=== PATIENT | female | born 1980 | race Caucasian/White ===

== ENCOUNTER 2021-02-28 08:03 | Outpatient (REF) | payer OTHER, SELFPAY ==
[2021-02-28 09:19] LABS: MANUAL DIFF FLAG NO
[2021-02-28 09:32] LABS: Basophils Percent Auto 0.4 % (0-2); Eosinophils Absolute Auto 0.3 X10*3/uL (0.0-0.4); Eosinophils Percent Auto 3.5 % (0-4); Hematocrit 42.4 % (37-47); Hemoglobin 14.1 g/dl (12.0-16.0); Imm Gran Abs Auto 0.05 X10*3/uL (0.00-0.03); Imm Gran Pct Auto 0.7 % (0.0-0.4); Lymphocytes Absolute Auto 2.2 X10*3/uL (1.2-4.9); Mean Corpuscular HGB Conc 33.3 g/dl (31.0-35.0); Mean Corpuscular Volume 90.2 fL (80-98); Mean Platelet Volume 10.8 fL (9.4-12.3); Monocytes Absolute Auto 0.6 X10*3/uL (0.1-1.2); Monocytes Percent Auto 7.7 % (2-11); Neutrophils Absolute Auto 4.2 X10*3/uL (2.0-8.3); Neutrophils Percent Auto 57.7 % (45-73); Platelet Count 243 X10*3/uL (160-400); Red Cell Distribution Width 11.9 % (11.0-16.0); White Blood Count 7.2 X10*3/uL (4.8-10.8)
[2021-02-28 09:52] LABS: Alanine Aminotransferase 27 U/L (0-31); Albumin Level 4.3 g/dL (3.5-5.0); Alkaline Phosphatase 66 U/L (39-117); Anion Gap 13 (12-20); Aspartate Amino Transferase 22 U/L (5-31); Bilirubin Total 0.7 mg/dL (0.0-1.0); Blood Urea Nitrogen 18 mg/dL (9-16); Calcium 9.5 mg/dL (8.4-10.2); Carbon Dioxide 26 mmol/L (22-29); Chloride 106 mmol/L (96-108); Cholesterol 139 mg/dL; Estimated Glomerular Filt Rate > 60; Glucose Fasting 96 mg/dL (60-99); HDL Cholesterol 32 mg/dL; LDL Cholesterol Calculated 83 mg/dl; Potassium 3.9 mmol/L (3.3-5.1); Sodium 141 mmol/L (135-145); Triglycerides 124 mg/dL
[2021-02-28 10:12] LABS: TSH reflex Free T4 2.01 uIU/mL (0.32-4.0)
[2021-03-07 11:12] LABS: Vitamin D 25-OH, D2 <4 ng/mL; Vitamin D 25-OH, D3 24 ng/mL; Vitamin D 25-OH, Total 24 ng/mL (30-100)
== END 2021-02-28 08:04 | disposition home or self-care (01) ==
LOC: HO.LAB 08:03
PROVIDERS: Visit Provider Internal Medicine
DX: E66.01 Morbid (severe) obesity due to excess calories (principal); E78.5 Hyperlipidemia, unspecified; D64.9 Anemia, unspecified; E55.9 Vitamin D deficiency, unspecified
CPT/HCPCS: 36415; 80053; 80061; 82306; 84443; 85025

== ENCOUNTER 2022-02-14 06:59 | Outpatient (REF) | payer OTHER, SELFPAY ==
[2022-02-14 07:17] LABS: MANUAL DIFF FLAG NO
[2022-02-14 08:01] LABS: Basophils Percent Auto 0.5 % (0-2); Eosinophils Absolute Auto 0.2 X10*3/uL (0.0-0.4); Eosinophils Percent Auto 2.7 % (0-4); Hematocrit 40.2 % (37.0-47.0); Hemoglobin 13.4 g/dl (12.0-16.0); Imm Gran Abs Auto 0.04 X10*3/uL (0.00-0.03); Imm Gran Pct Auto 0.5 % (0.0-0.4); Lymphocytes Absolute Auto 2.8 X10*3/uL (1.2-4.9); Lymphocytes Percent Auto 33.1 % (20-40); Mean Corpuscular HGB Conc 33.3 g/dl (31.0-35.0); Mean Corpuscular Hemoglobin 30.3 pg (27.0-33.0); Mean Platelet Volume 11.1 fL (9.4-12.3); Monocytes Absolute Auto 0.6 X10*3/uL (0.1-1.2); Monocytes Percent Auto 6.7 % (2-11); Neutrophils Absolute Auto 4.7 x10*3/uL (2.0-8.3); Neutrophils Percent Auto 56.5 % (45-73); Platelet Count 247 X10*3/uL (160-400); Red Blood Count 4.42 X10*6/uL (4.20-5.50); Red Cell Distribution Width 12.1 % (11.0-16.0); White Blood Count 8.4 X10*3/uL (4.8-10.8)
[2022-02-14 08:27] LABS: Alanine Aminotransferase 14 U/L (0-31); Albumin Level 4.2 g/dL (3.5-5.0); Alkaline Phosphatase 63 U/L (39-117); Anion Gap 10 (12-20); Aspartate Amino Transferase 15 U/L (5-31); Bilirubin Total 0.5 mg/dL (0.0-1.0); Blood Urea Nitrogen 19 mg/dL (9-16); Calcium 9.7 mg/dL (8.4-10.2); Carbon Dioxide 27 mmol/L (22-29); Chloride 107 mmol/L (96-108); Cholesterol 149 mg/dL; Estimated Glomerular Filt Rate > 60; Glucose Fasting 92 mg/dL (60-99); HDL Cholesterol 36 mg/dL; LDL Cholesterol Calculated 101 mg/dl; Magnesium 2.2 mg/dL (1.6-2.6); Potassium 4.3 mmol/L (3.3-5.1); Sodium 140 mmol/L (135-145); Total Protein 6.7 g/dL (6.5-8.0); Triglycerides 64 mg/dL
[2022-02-14 08:52] LABS: Thyroid Stimulating Hormone 1.72 uIU/mL (0.32-4.0); Vitamin D 25-OH Total 32.6 ng/mL (>30)
[2022-02-20 17:25] LABS: Vitamin B6 13.4 ng/mL (2.1-21.7)
== END 2022-02-14 07:00 | disposition home or self-care (01) ==
LOC: HO.LAB 06:59
PROVIDERS: PCP Internal Medicine; Visit Provider Internal Medicine
DX: Z00.00 Encounter for general adult medical examination without abnormal findings (principal); E66.01 Morbid (severe) obesity due to excess calories; E55.9 Vitamin D deficiency, unspecified; L98.9 Disorder of the skin and subcutaneous tissue, unspecified; R25.2 Cramp and spasm; F90.9 Attention-deficit hyperactivity disorder, unspecified type; F32.81 Premenstrual dysphoric disorder
CPT/HCPCS: 36415; 80053; 80061; 82306; 83735; 84207; 84443; 85025

== ENCOUNTER 2024-02-11 07:28 | Outpatient (AMB) | payer OTHER, SELFPAY ==
[2024-02-11 07:35] VITALS: BP 122/80; BMI 37.5
--- NOTE | 2024-02-11 07:35 | A.OFFPC_ITS ---
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 Required: No Accompanied by: Self / Same As Patient Allergies cat dander [CATS] Allergy (Intermediate, Verified 02/11/24 07:46) ITCHING pollen extracts [POLLEN] Allergy (Intermediate, Verified 02/11/24 07:46) ALLERGIC RHINITIS ragweed pollen [RAGWEED] Allergy (Intermediate, Verified 02/11/24 07:46) ALLERGIC RHINITIS Medication List - Last Reconciled 02/11/24 by Meghan Hurt MD albuterol sulfate 90 mcg/actuation (Ventolin HFA) 2 puffs PO Q6H PRN cetirizine (All Day Allergy (cetirizine)) 10 mg PO DAILY PRN 90 days cholecalciferol (vitamin D3) 25 mcg PO DAILY 90 days dextroamphetamine-amphetamine 20 mg ER 30 caps PO QAM ibuprofen 800 mg PO Q8H PRN 30 days Tobacco use date assessed: 02/11/24 Dental Screening Dental Screen Date: 02/11/24 Did you have a dental visit in the last 12 months?: Yes Did you have a dental problem in the last 6 months where you did not have access to dental care?: No Was dental information given to patient?: Patient has dentist HPI HPI Comments History of Present Illness Details This is a 43-year-old female that comes for her physical exam. Last Pap smear was at [facility] in July 2023 and was negative. Last colonoscopy was 2018 showing inflammatory polyp and next colonoscopy should be 2028. Has a mammogram scheduled for today at [facility]. Last mammogram was 2022 at [facility] and as per patient was normal. No chest pain or shortness of breath. Use rescue inhaler less than once a month. [facility] Medical History (Updated 02/11/24 @ 07:58 by Meghan Hurt MD) PMDD (premenstrual dysphoric disorder) ADHD Muscle cramps Encounter for physical examination Hypovitaminosis D Skin lesion Morbid obesity Mild asthma Surgical History History of D&C History of endometrial ablation Polydactyly of foot History of tonsillectomy H/O rectal sphincterotomy Lipoma Family History Father No problems noted. Mother No problems noted. Social History Housing: House Alcohol intake: current Alcohol intake frequency: holidays/special occasions only Alcohol type: wine Patient Tobacco Use Status: Never used Tobacco e-Cigarette/Vaping Use: Never Used Second Hand Smoke Exposure: No service: No Current occupational status: employed Current occupational exposures/hazards: No Cognitive needs: No Hearing needs: No Vision needs: No Questionnaire PHQ-9 Over the last 2 weeks, how often have you been bothered by any of the following problems? 1. Little interest or pleasure in doing things: not at all 2. Feeling down, depressed, or hopeless: not at all 3. Trouble falling or staying asleep, or sleeping too much: not at all 4. Feeling tired or having little energy: not at all 5. Poor appetite or overeating: not at all 6. Feeling bad about yourself - or that you are a failure or have let yourself or your family down: not at all 7. Trouble concentrating on things, such as reading the newspaper or watching television: not at all 8. Moving or speaking so slowly that other people could have noticed. Or the opposite - being so fidgety or restless that you have been moving around a lot more than usual: not at all 9. Thoughts that you would be better off or of hurting yourself in some way: not at all Total score: 0 Depression Screening Interpretation: Negative Depression Screening Done: Yes 18388 - PHQ-9 Billing: Yes Source: Developed by Drs. Sawyer Carmichael, Marlin Starr, Navin Franks and colleagues, with an educational lubna from [employer]. Thrive Questionnaire Date Thrive assessed: 02/11/24 I am a: Patient What is your living situation today?: I have a steady place to live Within the past 12 months, did the food you bought not last and you didn't have the money to get more?: Never true Within the past 12 months, did you worry whether your food would run out before you got money to buy more?: Never true Do you have trouble paying for medicines?: No Do you have trouble getting transportation to medical appointments?: No Do you have trouble paying your heating and electricity bill?: No Do you have trouble taking care of your child, family member or friend?: No Do you have trouble with day-to-day activities such as bathing, preparing meals, shopping, managing finances, etc.?: No Are you currently unemployed and looking for a job?: No Are you interested in more education?: No Please select the resources that you would like help with: None Currently or been in a relationship where the following occur: no concerns reported THRIVE Score: 0 AUDIT C Alcohol Use Questionnaire (AUDIT-C) 1. How often do you have a drink containing alcohol?: Monthly or less 2. How many drinks containing alcohol do you have on a typical day when you are drinking?: 1 or 2 3. How often do you have six or more drinks on one occasion?: Never Total Score: 1 CARLINE-7 AMB Questionnaire CARLINE-7 Date CARLINE - 7 assessed: 02/11/24 Feeling nervous, anxious, or on edge: 0 = Not at all Not being able to stop or control worryin = Not at all Worrying too much about different things: 0 = Not at all Trouble relaxin = Not at all Being so restless that it is hard to sit still: 0 = Not at all Becoming easily annoyed or irritable: 0 = Not at all Feeling afraid as if something awful might happen: 0 = Not at all Total CARLINE-7 score (0-4 normal; 5-9 mild; 10-14 moderate; 15-21 severe): 0 Source: Developed by Drs. Sawyer Carmichael, Marlin Starr, Navin Franks and colleagues, with an educational lubna from [employer]. CARLINE-7 Assessment Billing CARLINE-7 Assessment Tool: CARLINE-7 Assessment 15446 Review of Systems Const All systems reviewed & are unremarkable except as noted in HPI and below Eyes Reports no additional complaints, Denies change in vision and Denies other visual disturbances Card Denies chest pain at rest, Denies chest pain with activity, Denies edema, Denies irregular heart rhythm, Denies claudication, Denies dyspnea, Denies dyspnea on exertion, Denies orthopnea, Denies paroxysmal nocturnal dyspnea and Denies slow heart rate Resp Denies cough, Denies dyspnea and Denies dyspnea on exertion GI Denies abdominal pain, Denies change in bowel habits, Denies excessive flatus, Denies nausea and Denies vomiting Denies urinary incontinence, Denies urinary hesitancy and Denies urinary urgency Physical exam (Primary Care) Vital Signs: Last Vital Signs BP 122/80 02/11/24 07:35 BMI result Body Mass Index 37.5 Tobacco/Smoking Status: Tobacco use Status Tobacco use date assessed 02/11/24 02/11/24 07:44 Patient Tobacco Use Status Never used Tobacco 02/11/24 07:44 Tobacco use type 01/29/22 09:40 e-Cigarette/Vaping Use Never Used 02/11/24 07:44 PHQ-9: PHQ-9 Score PHQ-9: Total score 0 02/11/24 07:44 Depression Screening Interpretation: Negative Thrive Assessment: Date of Thrive Assessment Date Thrive assessed 02/11/24 02/11/24 07:44 Currently or been in a relationship where the following occur: no concerns reported Const Orientation/consciousness: patient oriented x3 HENMT Head: Yes normal to inspection, Yes normocephalic and Yes atraumatic Ears: external ears normal Eyes General: appearance normal, both eyes and all related structures Eyelids: Yes eyelids normal Conjunctivae: conjunctivae normal Neck Neck: Yes normal visual inspection and Yes supple Resp Effort & Inspection: normal respiratory effort Auscultation: clear to auscultation bilaterally Cardio Jugular venous distension: no JVD Rate: regular rate Rhythm: regular rhythm Heart sounds: S1 normal heart sound present and S2 normal heart sound present GI Inspection: Yes normal to inspection Palpation (GI): Soft to palpation and nontender Auscultation: normal bowel sounds Skin General skin exam: no rashes or lesions noted Neuro General: patient oriented x3 and no focal motor deficits Extrem General: Yes full ROM Psych Appearance: grossly normal Assessment and Plan Assessment & Plan (1) Encounter for physical examination: Code(s): Z00.00 - Encounter for general adult medical examination without abnormal findings Plan: Repeat in a year. Coding Level of Care Code Est Pt Prev Care 40-64y(42066) Diagnoses Encounter for physical examination Z00.00 Additional Codes CARLINE-7 Assessment Billing - CARLINE-7 Assessment Tool: CARLINE-7 Assessment 20076 ([id number]) Time Spent (min) 31
== END 2024-02-11 07:57 | disposition home or self-care (01) ==
PROVIDERS: Visit Provider Internal Medicine
DX: Z00.00 Encounter for general adult medical examination without abnormal findings (principal)
CPT/HCPCS: 99396

== ENCOUNTER 2024-07-07 14:49 | Outpatient (AMB) | payer OTHER, SELFPAY ==
[2024-07-07 14:54] VITALS: BP 124/86; BMI 37.7
--- NOTE | 2024-07-07 14:54 | MHC.PC.OV ---
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 Required: No Accompanied by: Self / Same As Patient Allergies cat dander [CATS] Allergy (Intermediate, Verified 07/07/24 15:12) ITCHING pollen extracts [POLLEN] Allergy (Intermediate, Verified 07/07/24 15:12) ALLERGIC RHINITIS ragweed pollen [RAGWEED] Allergy (Intermediate, Verified 07/07/24 15:12) ALLERGIC RHINITIS Medication List - Last Reconciled 07/07/24 by Meghan Hurt MD albuterol sulfate 90 mcg/actuation (Ventolin HFA) 2 puffs PO Q6H PRN cetirizine (All Day Allergy (cetirizine)) 10 mg PO DAILY PRN 90 days cholecalciferol (vitamin D3) 25 mcg PO DAILY 90 days dextroamphetamine-amphetamine 20 mg ER 30 caps PO QAM ibuprofen 800 mg PO Q8H PRN 30 days Tobacco use date assessed: 02/11/24 Dental Screening Dental Screen Date: 02/11/24 HPI HPI Comments History of Present Illness Details This is a 43-year-old female that comes today complaining of an abdominal pain that she feels is diffuse more prominent in epigastrium and right upper quadrant abdomen and started about 1-2 months ago. Associated with constipation but occasionally can have bouts of soft stools. This pain does not wake her up at night. She had a colonoscopy in 2019 which was benign and then had anal fissure repair. I will order labs and ultrasound. Will also refer her to Gastroenterology. No fever. Had night sweats recently. [facility] Medical History PMDD (premenstrual dysphoric disorder) ADHD Muscle cramps Encounter for physical examination Hypovitaminosis D Skin lesion Morbid obesity Mild asthma Surgical History History of D&C History of endometrial ablation Polydactyly of foot History of tonsillectomy H/O rectal sphincterotomy Lipoma Family History Father No problems noted. Mother No problems noted. Social History Housing: House Alcohol intake: current Alcohol intake frequency: holidays/special occasions only Alcohol type: wine Patient Tobacco Use Status: Never used Tobacco e-Cigarette/Vaping Use: Never Used Second Hand Smoke Exposure: No service: No Current occupational status: employed Current occupational exposures/hazards: No Cognitive needs: No Hearing needs: No Vision needs: No Questionnaire Thrive Questionnaire Date Thrive assessed: 02/11/24 CARLINE-7 AMB Questionnaire CARLINE-7 Date CARLINE - 7 assessed: 02/11/24 Source: Developed by Drs. Sawyer Carmichael, Marlin Starr, Navin Franks and colleagues, with an educational lubna from [employer]. Review of Systems Const All systems reviewed & are unremarkable except as noted in HPI and below Card Denies chest pain at rest, Denies chest pain with activity, Denies edema, Denies irregular heart rhythm, Denies claudication, Denies dyspnea, Denies dyspnea on exertion, Denies orthopnea, Denies paroxysmal nocturnal dyspnea and Denies slow heart rate Resp Denies cough, Denies dyspnea and Denies dyspnea on exertion GI Reports abdominal pain, Reports constipation, Denies excessive flatus, Denies nausea and Denies vomiting Denies urinary incontinence, Denies urinary hesitancy and Denies urinary urgency Musc Denies atrophy, Denies deformity and Denies limited range of motion Skin/Breast Denies bleeding lesions, Denies changing lesions and Denies rash Physical exam (Primary Care) Vital Signs: Last Vital Signs BP 124/86 07/07/24 14:54 BMI result Body Mass Index 37.7 BMI Assessment/Plan discussion: High BMI High, discussed plan: lifestyle, weight reduction, dietary and physical activity Tobacco/Smoking Status: Tobacco use Status Tobacco use date assessed 02/11/24 07/07/24 14:59 Patient Tobacco Use Status Never used Tobacco 07/07/24 14:59 Tobacco use type 01/29/22 09:40 e-Cigarette/Vaping Use Never Used 07/07/24 14:59 Thrive Assessment: Date of Thrive Assessment Date Thrive assessed 02/11/24 07/07/24 14:59 Resp Effort & Inspection: normal respiratory effort Auscultation: clear to auscultation bilaterally Cardio Jugular venous distension: no JVD Rate: regular rate Rhythm: regular rhythm Heart sounds: S1 normal heart sound present and S2 normal heart sound present GI Inspection: Yes normal to inspection Palpation (GI): Soft to palpation, nontender and Other GI palpation findings present (multiple small nontender lumps involving epigastrium and RUQ) Auscultation: normal bowel sounds Extrem General: Yes full ROM Assessment and Plan Assessment & Plan (1) Abdominal pain: Code(s): R10.9 - Unspecified abdominal pain Qualifiers: Abdominal location: generalized Qualified Code(s): R10.84 - Generalized abdominal pain Plan: Ultrasound abdomen ordered. Orders: Orders Thyroid Stimulating Hormone Today R10.9 - Unspecified abdominal pain Comprehensive Met. Panel Today R10.9 - Unspecified abdominal pain Complete Blood Count Auto Diff Today R10.9 - Unspecified abdominal pain US abdomen comp w elastography Today R10.9 - Unspecified abdominal pain Referrals Gastroenterology Referral R10.9 - Unspecified abdominal pain Coding Level of Care Code Est Pt Level 3 (67037) Complex EM visit Add On G2211 Diagnoses Generalized abdominal pain R10.84 Abdominal location: generalized Time Spent (min) 19
== END 2024-07-07 15:28 | disposition home or self-care (01) ==
PROVIDERS: PCP Internal Medicine; Visit Provider Internal Medicine
DX: R10.84 Generalized abdominal pain (principal)
CPT/HCPCS: 99213

== ENCOUNTER 2024-07-07 15:31 | Outpatient (REF) | payer OTHER, SELFPAY ==
[2024-07-07 15:47] LABS: MANUAL DIFF FLAG NO
[2024-07-07 16:26] LABS: Basophils Absolute Auto 0.1 X10*3/uL (0.0-0.2); Basophils Percent Auto 0.7 % (0-2); Eosinophils Absolute Auto 0.2 X10*3/uL (0.0-0.4); Eosinophils Percent Auto 1.6 % (0-4); Hemoglobin 13.2 g/dl (12.0-16.0); Imm Gran Abs Auto 0.06 X10*3/uL (0.00-0.03); Imm Gran Pct Auto 0.6 % (0.0-0.4); Lymphocytes Absolute Auto 2.6 X10*3/uL (1.2-4.9); Lymphocytes Percent Auto 24.6 % (20-40); Mean Corpuscular HGB Conc 33.8 g/dl (31.0-35.0); Mean Corpuscular Hemoglobin 30.4 pg (27.0-33.0); Mean Corpuscular Volume 89.9 fL (80.0-98.0); Mean Platelet Volume 10.7 fL (9.4-12.3); Monocytes Absolute Auto 0.5 X10*3/uL (0.1-1.2); Monocytes Percent Auto 5.2 % (2-11); Neutrophils Percent Auto 67.3 % (45-73); Platelet Count 236 X10*3/uL (160-400); Red Blood Count 4.34 X10*6/uL (4.20-5.50); White Blood Count 10.4 X10*3/uL (4.8-10.8)
[2024-07-07 17:11] LABS: Alanine Aminotransferase 11 U/L (0-31); Albumin Level 4.1 g/dL (3.5-5.0); Alkaline Phosphatase 61 U/L (39-117); Anion Gap 13 (12-20); Aspartate Amino Transferase 13 U/L (5-31); Bilirubin Total 0.4 mg/dL (0.0-1.0); Blood Urea Nitrogen 24 mg/dL (9-16); Calcium 9.5 mg/dL (8.4-10.2); Carbon Dioxide 25 mmol/L (22-29); Chloride 109 mmol/L (96-108); Estimated Glomerular Filt Rate > 60; Glucose Random 93 mg/dL (60-115); Potassium 3.9 mmol/L (3.3-5.1); Sodium 143 mmol/L (135-145); Total Protein 6.9 g/dL (6.5-8.0)
[2024-07-07 17:30] LABS: Thyroid Stimulating Hormone 1.77 uIU/mL (0.32-4.0)
== END 2024-07-07 15:32 | disposition home or self-care (01) ==
LOC: HO.LAB 15:31
PROVIDERS: PCP Internal Medicine; Visit Provider Internal Medicine
DX: R10.9 Unspecified abdominal pain (principal)
CPT/HCPCS: 36415; 80053; 84443; 85025

== ENCOUNTER 2024-07-20 07:40 | Outpatient (REF) | payer OTHER, SELFPAY ==
--- NOTE | ~2024-07-20 | US_ITS ---
EXAMINATION: US COMPLETE ABDOMEN WITH LIVER ELASTOGRAPHY CLINICAL INFORMATION: Abdominal pain. COMPARISON: Abdominal ultrasound 08/08/2015. TECHNIQUE: Real-time imaging of the abdominal viscera. Noninvasive ultrasound liver fibrosis assessment is performed using Farida ElastPQ point quantification shear wave elastography (pSWE) with a C5-2 MHz transducer. Multiple elastography samples are obtained. FINDINGS: PANCREAS: The visualized pancreatic head and body are normal in appearance. The remainder of the pancreas is obscured from visualization by the overlying bowel gas. ABDOMINAL AORTA: The proximal, middle, and distal aortic segments are normal in caliber. INFERIOR VENA CAVA: Visualized portions are normal. LIVER: The liver demonstrates normal size and contour but with slightly increased echogenicity suggesting hepatic steatosis. No focal lesion or intrahepatic biliary duct dilatation. The right lobe measures 16.7 cm in length. The left lobe measures 12.9 cm in length. Portal flow is towards the liver (hepatopetal). Shear wave liver elastography median stiffness is 1.89 m/s (reference: normal median stiffness is 1.3 m/s or less). IQR/median stiffness to assess sampling precision is 0.08 (reference: good quality data set is IQR/median stiffness of 0.15 or less). GALLBLADDER: 4 mm gallbladder polyp is present. The gallbladder is physiologically distended without evidence of stones, sludge, wall thickening or pericholecystic fluid. COMMON BILE DUCT: Normal in caliber measuring 0.6 cm in diameter. RIGHT KIDNEY: Normal. No hydronephrosis. No renal calculi or focal parenchymal lesions. The kidney measures 12.1 cm in maximum dimension. LEFT KIDNEY: Normal. No hydronephrosis. No renal calculi or focal parenchymal lesions. The kidney measures 13.1 cm in maximum dimension. SPLEEN: Normal. The spleen measures 11.4 cm in maximum dimension. FREE FLUID: None. US/US abdomen comp w elastography IMPRESSION: 1. Hepatic steatosis. 2. Liver elastography: Measurements are suggestive of compensated advanced chroniic liver disease but need further test for confirmation. REFERENCE: Society of Radiologists in Ultrasound Liver Stiffness Thresholds (2019): LIVER STIFFNESS THRESHOLDS: *Liver Stiffness equal or less than 1.3 m/s: High probability of being normal. *Liver Stiffness less than 1.7 m/s: In the absence of other known clinical signs, rules out compensated advanced chronic liver disease. *Liver Stiffness 1.7-2.1 m/s: Suggestive of compensated advanced chronic liver disease but need further test for confirmation. *Liver Stiffness over 2.1 m/s: Rules in compensated advanced chronic liver disease. *Liver Stiffness over 2.4 m/s: Suggestive of clinically significant portal hypertension. QUALITY OF DATA SET: *IQR/Median value equal or less than 0.15 implies a quality data set. *IQR/Median value over 0.15 implies a poor quality data set. SIGNIFICANT CHANGE FROM PRIOR EXAM: Significant change if liver stiffness measurement is 10% or greater from prior exam. OTHER CONSIDERATIONS: The stage of liver fibrosis may be overestimated in the setting of acute hepatitis, liver inflammation, elevated liver function tests, hepatic vascular congestion, obstructive cholestasis, non-fasting state, and infiltrative diseases such as amyloidosis and lymphoma. In some patients with NAFLD, the liver stiffness thresholds for compensated advanced chronic liver disease may be lower. In causes other than viral hepatitis and NAFLD, liver stiffness thresholds are not well established. Electronically signed by: Bashir Herman MD 07/22/2024 05:05 PM EDT
== END 2024-07-20 07:41 | disposition home or self-care (01) ==
LOC: HO.US 07:40
PROVIDERS: PCP Internal Medicine; Visit Provider Internal Medicine
DX: R10.9 Unspecified abdominal pain (principal)
CPT/HCPCS: 76700; 76981

== ENCOUNTER 2024-09-25 09:44 | Outpatient (AMB) | payer OTHER, SELFPAY ==
--- NOTE | 2024-09-25 09:45 | MHC.OFFVIS ---
Intake Visit Reasons: unspecified abdominal pain Intake Note: Yahaira presents as a telehealth today CC: she states she has constipation, diarrhea, pains in the stomach and blood when she has a BM - she stats that blood is often. Pains in the stomach are mostly the right side and upper abdominal. 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 Required: No Allergies cat dander [CATS] Allergy (Intermediate, Verified 09/25/24 09:45) ITCHING pollen extracts [POLLEN] Allergy (Intermediate, Verified 09/25/24 09:45) ALLERGIC RHINITIS ragweed pollen [RAGWEED] Allergy (Intermediate, Verified 09/25/24 09:45) ALLERGIC RHINITIS tree and shrub pollen Allergy (Mild, Verified 09/25/24 09:45) Unknown HPI HPI unspecified abdominal pain: Details: 43 yr old f being seen for assessment Last seen around 2019 I saw her before for rectal bleeding she had colonoscopy with large inflammatory polyp removed from the rectum, bx neg for colitis NOW: she has been having sharp pains RUQ and epigastrium not noted pain worse with food particularly does not occur at night she has mild nausea and heartburn occasional no weight loss appetite is good she can have alternating bowel habits has noted blood on the toilet diet is good usually she has had endometriosis and surgery for that, no urine symptoms she has lipomas --a few are tender whitley one in the epigastrium US 07/28- small gb polyp, fatty liver EXAM: relaxed, good color A/P: 1/ NAFLD- nml LFT 2/ GB polyp- small 3/ RUQ pain and lipomsa uncertain if related 4/ abn bowel habit PLAN: 1/ KUB 2/ surg referral for lipoma removal 3/ EGD and colonoscopy 4/ maybe repeat US in 1yr or so 5/ diet and weight loss discussed for NAFLD ON LICENSE OF [facility] Medical History PMDD (premenstrual dysphoric disorder) ADHD Muscle cramps Encounter for physical examination Hypovitaminosis D Skin lesion Morbid obesity Mild asthma Surgical History History of D&C History of endometrial ablation Polydactyly of foot History of tonsillectomy H/O rectal sphincterotomy Lipoma Family History Father No problems noted. Mother No problems noted. Social History Housing: House Alcohol intake: current Alcohol intake frequency: holidays/special occasions only Alcohol type: wine Patient Tobacco Use Status: Never used Tobacco e-Cigarette/Vaping Use: Never Used Second Hand Smoke Exposure: No service: No Current occupational status: employed Current occupational exposures/hazards: No Cognitive needs: No Hearing needs: No Vision needs: No Telehealth Telehealth Telehealth Platform: [employer] Location of provider rendering services: practice address Location of patient: address on file Patient Identification confirmed using: Name, : Yes Telehealth method: video Patient verbally consented to treatment: Yes Patient verbally consented to billing insurance company: Yes Patient informed of any privacy concerns related to visit: Yes Minutes spent on Phone/Video with Pt.: 14 Assessment & Plan Assessment & Plan (1) Abdominal pain: Code(s): R10.9 - Unspecified abdominal pain Category: Medical Qualifiers: Abdominal location: generalized Qualified Code(s): R10.84 - Generalized abdominal pain Plan: see above Orders: Orders XR KUB Today R10.84 - Generalized abdominal pain Referrals General Surgery Referral R10.84 - Generalized abdominal pain Medications: New sodium,potassium,mag sulfates 17.5-3.13-1.6 gram (Suprep Bowel Prep Kit) DILUTE; drink 1/2 at 6-8 pm and half at 11 PM- 1AM 354 mL 0RF Coding Level of Care Code Tele New Pt Level 4 (38148) Diagnoses Generalized abdominal pain R10.84 Abdominal location: generalized
== END 2024-09-25 12:08 | disposition home or self-care (01) ==
LOC: HO.HGI 09:44
PROVIDERS: PCP Internal Medicine; Visit Provider Internal Medicine Gastroenterology
DX: R10.84 Generalized abdominal pain (principal)
CPT/HCPCS: 99204

== ENCOUNTER 2024-10-13 11:20 | Outpatient (AMB) | payer OTHER, SELFPAY ==
--- NOTE | 2024-10-13 11:27 | MHC.OFFVIS ---
Vital Signs 10/13/24 11:31 Height 5 ft 6.5 in Weight 240 lb BMI 38.2 BP 147/68 H Blood Pressure Location Lt brachial Position Sitting Pulse 88 Intake Visit Reasons: lipoma of the abdomen and back Intake Note: Patient is seen in office for evaluation of a lipoma of the abdomen and back. 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 Accompanied by: Self / Same As Patient Allergies cat dander [CATS] Allergy (Intermediate, Verified 10/13/24 11:30) ITCHING pollen extracts [POLLEN] Allergy (Intermediate, Verified 10/13/24 11:30) ALLERGIC RHINITIS ragweed pollen [RAGWEED] Allergy (Intermediate, Verified 10/13/24 11:30) ALLERGIC RHINITIS tree and shrub pollen Allergy (Mild, Verified 10/13/24 11:30) Unknown Medication List - Last Reconciled 10/13/24 by Yonis Cagle MD albuterol sulfate 90 mcg/actuation (Ventolin HFA) 2 puffs PO Q6H PRN cetirizine (All Day Allergy (cetirizine)) 10 mg PO DAILY PRN 90 days cholecalciferol (vitamin D3) 25 mcg PO DAILY 90 days dextroamphetamine-amphetamine 30 mg ER 1 cap PO DAILY ibuprofen 800 mg PO Q8H PRN 30 days sodium,potassium,mag sulfates 17.5-3.13-1.6 gram (Suprep Bowel Prep Kit) DILUTE; drink 1/2 at 6-8 pm and half at 11 PM- 1AM HPI Comments Details: 43-year-old female patient with a prior history of lipomas of the arm and back now presenting with several new lipomas which are causing increased discomfort. These include 3 lipomas of the abdominal wall located in the lower abdomen which cause discomfort when leaning against a countertop. She feels they are increasing in size and causing discomfort. She also notes 3 lipomas of the back to the right of midline mainly in the lower back. All 3 are symptomatic with pressure and palpation. She has other lipomas which are not symptomatic. She is requesting excision of the 6 symptomatic lipomas. [facility] [place] Medical History PMDD (premenstrual dysphoric disorder) ADHD Muscle cramps Encounter for physical examination Hypovitaminosis D Skin lesion Morbid obesity Mild asthma Surgical History History of D&C History of endometrial ablation Polydactyly of foot History of tonsillectomy H/O rectal sphincterotomy Lipoma Family History Father No problems noted. Mother No problems noted. Social History Housing: House Alcohol intake: current Alcohol intake frequency: holidays/special occasions only Alcohol type: wine Patient Tobacco Use Status: Never used Tobacco e-Cigarette/Vaping Use: Never Used Second Hand Smoke Exposure: No service: No Current occupational status: employed Current occupational exposures/hazards: No Cognitive needs: No Hearing needs: No Vision needs: No Review of Systems Const All systems reviewed & are unremarkable except as noted in HPI and below Physical Exam Const General: comfortable Nutritional Appearance: well nourished Orientation/consciousness: patient oriented x3 Limitations: no limitations Resp Effort & Inspection: normal respiratory effort, no audible wheezes, no cough and no respiratory distress GI Abdomen image: 1. 2. 3. Back/Spine/Pelvis Other: Lipomas all approximately 2 cm in diameter as noted below. No overlying skin changes appreciated. Back/spine/pelvis image: 1. 2. 3. Neuro General: patient oriented x3 Assessment & Plan Assessment & Plan (1) Multiple lipomas: Code(s): D17.9 - Benign lipomatous neoplasm, unspecified Category: Medical Plan Patient presents with 6 symptomatic lipomas including 3 in the abdomen and 3 in the right back. She is requesting excision of the symptomatic lipomas and after discussion of the procedure, risks, and alternatives, she consents to excision of the 3 abdominal and 3 right back lipomas. This will be scheduled as a minor surgery under local anesthesia. Coding Level of Care Code New Pt Level 4 (18759) Diagnoses Multiple lipomas D17.9
[2024-10-13 11:31] VITALS: BP 147/68; PULSE 88; BMI 38.2
== END 2024-10-13 11:50 | disposition home or self-care (01) ==
PROVIDERS: PCP Internal Medicine; Referring Provider Internal Medicine Gastroenterology; Visit Provider Surgery
DX: D17.9 Benign lipomatous neoplasm, unspecified (principal)
CPT/HCPCS: 99204

== ENCOUNTER 2024-12-08 13:40 | Outpatient (REF) | payer OTHER, SELFPAY ==
[2024-12-08 13:17] VITALS: BP 141/73; PULSE 82; RESP 15; TEMP 35.6; O2SAT 99; BMI 38.7
--- NOTE | 2024-12-08 15:06 | W.PM.OPN ---
Operative Note Operative Note Date of Service: 12/08/24 Narrative: Preoperative diagnosis: Multiple lipoma of lower abdominal wall and back (6) Postoperative diagnosis: Same Procedure: Excision of multiple lipomas abdominal wall and back (6) Surgeon: Yonis Cagle MD Mallet And Die Cutter: None Anesthesia: Lidocaine 1% with epinephrine Indications for procedure: 44-year-old female patient presenting with multiple small lipomas involving the lower abdominal wall (4) bilaterally and back (2) bilaterally Operative findings: 1 cm lipoma x6 as noted above Specimen: Lipoma x6 (1 specimen) Estimated blood loss: 5 mL Complications: None Procedure details: Patient was brought to the minor surgery suite and placed in a supine position. The site of surgery was confirmed by the patient preoperatively. After assuring informed consent, the abdomen was prepped with Betadine and draped in a sterile fashion. For lipomas were noted in the lower abdomen, 2 in the right lower quadrant and 2 in the left lower quadrant. Beginning in the left lower quadrant the skin was anesthetized with lidocaine. An incision was then made with a scalpel measuring approximately 1.5 cm. Blunt dissection with the hemostat was then used to dissect the lipoma which was then grasped with an Allis clamp.. Scissor was then used to dissect the lipoma from the surrounding subcutaneous tissue. This was then passed off the table and sent to pathology for further examination. Attention was then directed to the more medial left lower quadrant lesion which was also anesthetized. An incision was made with a scalpel measuring approximately 1.5 cm and carried out through subcutaneous tissue up to the lipoma. Blunt dissection was used to dissect the lipoma from the surrounding subcutaneous tissue. This was grasped with an Allis clamp and dissected free using the Metzenbaum scissors. The specimen was passed off the table and sent to pathology for further examination. Attention was then directed to the right lower quadrant beginning in the more lateral lesion which was anesthetized and incised with a scalpel. Dissection was continued down in a similar fashion into the subcutaneous tissue. The lipoma was grasped with an Allis clamp and dissected free from the surrounding subcutaneous tissue using a Metzenbaum scissors. The lesion was then excised and sent to pathology for further examination. Finally the more medial lesion in the right lower quadrant was anesthetized with lidocaine. Incision was made with a scalpel measuring 1.5 cm. This was carried out through subcutaneous tissue up to the lipoma. Lipoma was grasped with an Allis clamp and dissected free from the surrounding subcutaneous tissue using a Metzenbaum scissors. The specimen was passed off the table and sent to pathology for further examination. All 4 lesions were then closed using a subcuticular 4-0 Polysorb suture followed by Steri-Strips, 2 x 2 gauze and Tegaderm. The patient was then placed in a prone position. Bilateral flank lipomas the lower back were previously identified by the patient and marked. Skin was prepped with Betadine and draped in a sterile fashion at both locations. Local was then infiltrated in both lesions. Beginning in the left flank, an incision was made measuring 1.5 cm and carried through subcutaneous tissue and up to the lipoma. This was then grasped with the Allis clamp then dissected free from the surrounding subcutaneous tissue using a Metzenbaum scissors. The specimen was passed off the table and sent to pathology for further examination. Attention was then directed to the right flank were again local was infiltrated incision made with a scalpel. This was carried out through subcutaneous tissue up to the lipoma. The lipoma was then dissected free from the surrounding subcutaneous tissue with the Metzenbaum scissors and sent to pathology for further examination. Skin was closed in both incisions using a subcuticular 4-0 Polysorb suture. Steri-Strips, 2 x 2 gauze and Tegaderm were then applied. The patient tolerated the procedure well. She was discharged to home in stable condition.
== END 2024-12-08 13:41 | disposition home or self-care (01) ==
LOC: HO.MS 13:40
PROVIDERS: PCP Internal Medicine; Visit Provider Surgery
PROC: (CPT 11406; principal; 2024-12-08 14:00)
DX: D17.1 Benign lipomatous neoplasm of skin and subcutaneous tissue of trunk (principal)
CPT/HCPCS: 11406; 88304; J2004

== ENCOUNTER → 2024-12-08 13:40 | Outpatient (BNV) | payer OTHER, SELFPAY | PROVIDERS: PCP Internal Medicine; Visit Provider Surgery | DX: D17.1 Benign lipomatous neoplasm of skin and subcutaneous tissue of trunk (principal) | CPT/HCPCS: 22902; 22903 ==

== ENCOUNTER 2024-12-18 09:22 | Outpatient (AMB) | payer OTHER, SELFPAY ==
--- NOTE | 2024-12-18 09:28 | A.OFFVIS_ITS ---
Vital Signs 3 12/18/24 09:35 Height 56 ft Weight 238 lb 1.588 oz BMI 0.4 BP 140/63 H Blood Pressure Location Lt brachial Position Sitting Pulse 94 Intake Visit Reasons: S/P Excision Multiple Lipomas of Abdomen and Back Intake Note: Patient is seen in office for post op assessment post excision of multiple lipomas of the abdomen and back. 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 Accompanied by: Self / Same As Patient Allergies cat dander [CATS] Allergy (Intermediate, Verified 12/18/24 09:35) ITCHING pollen extracts [POLLEN] Allergy (Intermediate, Verified 12/18/24 09:35) ALLERGIC RHINITIS ragweed pollen [RAGWEED] Allergy (Intermediate, Verified 12/18/24 09:35) ALLERGIC RHINITIS tree and shrub pollen Allergy (Mild, Verified 12/18/24 09:35) Unknown Medication List - Last Reconciled 12/18/24 by Yonis Cagle MD albuterol sulfate 90 mcg/actuation (Ventolin HFA) 2 puffs PO Q6H PRN cetirizine (All Day Allergy (cetirizine)) 10 mg PO DAILY PRN 90 days cholecalciferol (vitamin D3) 25 mcg PO DAILY 90 days dextroamphetamine-amphetamine 30 mg ER 1 cap PO DAILY ibuprofen 800 mg PO Q8H PRN 30 days sodium,potassium,mag sulfates 17.5-3.13-1.6 gram (Suprep Bowel Prep Kit) DILUTE; drink 1/2 at 6-8 pm and half at 11 PM- 1AM HPI Comments Details: Returns 1 week following excision of multiple lipomas of the abdominal wall and lower back. She tolerated the procedure well but does have 1 area in the right lower quadrant which is slightly harder with surrounding redness in the skin. She denies any bleeding or discharge from the incisions. There is some soreness to this 1 incision. [facility] Medical History PMDD (premenstrual dysphoric disorder) ADHD Muscle cramps Encounter for physical examination Hypovitaminosis D Skin lesion Morbid obesity Mild asthma Surgical History History of D&C History of endometrial ablation Polydactyly of foot History of tonsillectomy H/O rectal sphincterotomy Lipoma Family History Father No problems noted. Mother No problems noted. Social History Housing: House Alcohol intake: current Alcohol intake frequency: holidays/special occasions only Alcohol type: wine Patient Tobacco Use Status: Never used Tobacco e-Cigarette/Vaping Use: Never Used Second Hand Smoke Exposure: No service: No Current occupational status: employed Current occupational exposures/hazards: No Cognitive needs: No Hearing needs: No Vision needs: No Physical Exam GI Abdomen image: 2 1. Well-healed incision 2. Incision with surrounding light erythema and firmness above the incision suggestive of a possible seroma and cellulitis. 3. Well-healed incision 4. Well-healed incision Back/Spine/Pelvis Back/spine/pelvis image: 2 1. Well-healed incision 2. Well-healed incision Assessment & Plan Assessment & Plan (1) Multiple lipomas: Code(s): D17.9 - Benign lipomatous neoplasm, unspecified Category: Medical Plan 44-year-old female patient with multiple lipomas of the abdominal wall and lower back status post excision. Her wounds are mostly well healed but 1 incision in the right lower quadrant as noted above has some area of redness and firmness suggestive of a seroma and possible cellulitis. I recommended starting antibiotics for 1 week and asked her to return in 1 week for follow-up examination. Medications: New 2 cephalexin 500 mg PO Q8H 7 days 21 caps 0RF Coding Level of Care Code Global (99889) Diagnoses Multiple lipomas D17.9
[2024-12-18 09:35] VITALS: BP 140/63; PULSE 94
== END 2024-12-18 09:39 | disposition home or self-care (01) ==
PROVIDERS: PCP Internal Medicine; Visit Provider Surgery
DX: D17.9 Benign lipomatous neoplasm, unspecified (principal)
CPT/HCPCS: 99024

== ENCOUNTER → 2024-12-18 09:22 | Outpatient (BNVA) | payer OTHER, SELFPAY | PROVIDERS: PCP Internal Medicine; Visit Provider Surgery ==

== ENCOUNTER 2024-12-24 08:54 | Outpatient (AMB) | payer OTHER, SELFPAY ==
--- NOTE | 2024-12-24 08:58 | MHC.OFFVIS ---
Vital Signs 12/24/24 09:05 Height 5 ft 6 in Weight 242 lb 6 oz BMI 39.1 BP 133/63 Blood Pressure Location Lt brachial Position Sitting Pulse 89 Intake Visit Reasons: S/P Excision Multiple Lipomas of Abdomen and Back Intake Note: Patient is seen in office for one week follow up visit, post excision of multiple lipomas of the abdomen and back. 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 Overall she feels improved and denies any further discharge from the right medial wound. She did develop a reaction to the Steri-Strips which may be a tape allergy. She does report some itchiness around the incisions. [facility] Medical History PMDD (premenstrual dysphoric disorder) ADHD Muscle cramps Encounter for physical examination Hypovitaminosis D Skin lesion Morbid obesity Mild asthma Surgical History History of D&C History of endometrial ablation Polydactyly of foot History of tonsillectomy H/O rectal sphincterotomy Lipoma Family History Father No problems noted. Mother No problems noted. Social History Housing: House Alcohol intake: current Alcohol intake frequency: holidays/special occasions only Alcohol type: wine Patient Tobacco Use Status: Never used Tobacco e-Cigarette/Vaping Use: Never Used Second Hand Smoke Exposure: No service: No Current occupational status: employed Current occupational exposures/hazards: No Cognitive needs: No Hearing needs: No Vision needs: No Physical Exam Vital Signs: Last Vital Signs Pulse 89 12/24/24 09:05 BP 133/63 12/24/24 09:05 BMI result Body Mass Index 39.1 Const General: healthy appearing Nutritional Appearance: well nourished Orientation/consciousness: patient oriented x3 GI Other: All incisions are clean and intact without redness or discharge. There is superficial redness from the Steri-Strips with no evidence of infection at this time. Skin Other: Warm, dry. Neuro General: patient oriented x3 Assessment & Plan Assessment & Plan (1) Multiple lipomas: Code(s): D17.9 - Benign lipomatous neoplasm, unspecified Category: Medical Plan 44-year-old female patient with multiple lipomas of the abdominal wall and lower back status post excision. She has now completed her antibiotics and all wounds are now clean and intact without evidence of infection. I recommended applying hydrocortisone cream for the itchiness which seems to be related to adhesive rather than the actual incision. She expressed understanding and agrees with the plan. She should return as needed. Coding Level of Care Code Global (41697) Diagnoses Multiple lipomas D17.9
[2024-12-24 09:05] VITALS: BP 133/63; PULSE 89; BMI 39.1
== END 2024-12-24 09:16 | disposition home or self-care (01) ==
PROVIDERS: PCP Internal Medicine; Visit Provider Surgery
DX: D17.9 Benign lipomatous neoplasm, unspecified (principal)
CPT/HCPCS: 99024

== ENCOUNTER → 2024-12-24 08:54 | Outpatient (BNVA) | payer OTHER, SELFPAY | PROVIDERS: PCP Internal Medicine; Visit Provider Surgery ==

== ENCOUNTER 2025-01-06 09:24 | Day surgery (SDC) | payer OTHER, SELFPAY ==
[2025-01-04 14:37] VITALS: BMI 39.1
--- NOTE | 2025-01-05 12:13 | P.CONAN_ITS ---
Documented by User: Karley Figueroa NP 01/05/25 12:13 HPI - Anesthesia Eval Consult details Narrative: 44yo F for Upper Endoscopy and Colonoscopy PMFSH Active Problems Active Problems: All Active Problems Multiple lipomas (Acute) Abdominal pain (Acute) Contact dermatitis and other eczema, due to unspecified cause (Acute) PMDD (premenstrual dysphoric disorder) (Acute) ADHD (Acute) Muscle cramps (Acute) Encounter for physical examination (Acute) Hypovitaminosis D (Acute) Skin lesion (Acute) Mild asthma (Acute) Past Medical History Medical History PMDD (premenstrual dysphoric disorder) ADHD Muscle cramps Encounter for physical examination Hypovitaminosis D Skin lesion Morbid obesity Mild asthma Family History Family History Father No problems noted. Mother No problems noted. Surgical History Surgical History History of D&C History of endometrial ablation Polydactyly of foot History of tonsillectomy H/O rectal sphincterotomy Lipoma Social History Social History Housing: House Are you a primary continuum of care manager to a significant other at home: No Do you presently have visiting nurse or other home services: No Alcohol intake: current Alcohol intake frequency: holidays/special occasions only Alcohol type: wine Patient Tobacco Use Status: Never used Tobacco e-Cigarette/Vaping Use: Never Used Second Hand Smoke Exposure: No Use of substances other than those prescribed or required for medical reasons: No Have you been hit, kicked, punched, or otherwise hurt by someone within the past year? If so, by whom?: No Are you DNR?: No Advance Directives: No Advance Directives Information Provided: Yes Recently lost weight without trying: No Nutrition Risks: No Nutritional Risk Patient : No (UCG pending) service: No Current occupational status: employed Current occupational exposures/hazards: No Cognitive needs: No Hearing needs: No Vision needs: No Meds Allergies Allergy/AdvReac Type Severity Reaction Status Date / Time cat dander [CATS] Allergy Intermediate ITCHING Verified 12/24/24 09:04 pollen extracts [POLLEN] Allergy Intermediate ALLERGIC Verified 12/24/24 09:04 RHINITIS ragweed pollen [RAGWEED] Allergy Intermediate ALLERGIC Verified 12/24/24 09:04 RHINITIS tree and shrub pollen Allergy Intermediate allergic Verified 01/04/25 14:36 rhinitis Home Medications ?Medication ?Instructions ?Recorded ?Confirmed ?Last Taken ?Type dextroamphetamine-amphetamine ER 1 cap PO DAILY 09/25/24 01/04/25 Unknown History 30 mg 24hr capsule,extend release Exam Height,Weight and Vital Signs: Height 5 ft 6 in Weight 109.769 kg Assessment and Plan Assessment Anesthesia Assessment: Chart Reviewed Documented by User: Chelsea Muñiz MD 01/06/25 11:17 [facility] Active Problems Active Problems: All Active Problems Multiple lipomas (Acute) Abdominal pain (Acute) Contact dermatitis and other eczema, due to unspecified cause (Acute) PMDD (premenstrual dysphoric disorder) (Acute) ADHD (Acute) Muscle cramps (Acute) Encounter for physical examination (Acute) Hypovitaminosis D (Acute) Skin lesion (Acute) Mild asthma (Acute). Occasional use of inhaler Morbid Obesity BMI 39 Denies MARY Past Medical History Medical History PMDD (premenstrual dysphoric disorder) ADHD Muscle cramps Encounter for physical examination Hypovitaminosis D Skin lesion Morbid obesity Mild asthma Family History Family History Father No problems noted. Mother No problems noted. Family history of problems with anesthesia: No Surgical History Surgical History History of D&C History of endometrial ablation Polydactyly of foot History of tonsillectomy H/O rectal sphincterotomy Lipoma History of Problems with Anesthesia: No Social History Social History Housing: House Are you a primary continuum of care manager to a significant other at home: No Do you presently have visiting nurse or other home services: No Alcohol intake: current Alcohol intake frequency: holidays/special occasions only Alcohol type: wine Patient Tobacco Use Status: Never used Tobacco e-Cigarette/Vaping Use: Never Used Second Hand Smoke Exposure: No Use of substances other than those prescribed or required for medical reasons: No Have you been hit, kicked, punched, or otherwise hurt by someone within the past year? If so, by whom?: No Are you DNR?: No Advance Directives: No Advance Directives Information Provided: Yes Recently lost weight without trying: No Nutrition Risks: No Nutritional Risk Patient : No (UCG pending) service: No Current occupational status: employed Current occupational exposures/hazards: No Cognitive needs: No Hearing needs: No Vision needs: No Meds Allergies Allergy/AdvReac Type Severity Reaction Status Date / Time cat dander [CATS] Allergy Intermediate ITCHING Verified 12/24/24 09:04 pollen extracts [POLLEN] Allergy Intermediate ALLERGIC Verified 12/24/24 09:04 RHINITIS ragweed pollen [RAGWEED] Allergy Intermediate ALLERGIC Verified 12/24/24 09:04 RHINITIS tree and shrub pollen Allergy Intermediate allergic Verified 01/04/25 14:36 rhinitis Home Medications ?Medication ?Instructions ?Recorded ?Confirmed ?Last Taken ?Type dextroamphetamine-amphetamine ER 1 cap PO DAILY 09/25/24 01/04/25 Unknown History 30 mg 24hr capsule,extend release Exam Height,Weight and Vital Signs: Height 5 ft 6 in Weight 109.769 kg Vital Signs Temp Pulse Resp BP Pulse Ox O2 Del Method 01/06/25 10:07 98.2 F 80 16 121/72 97 Room Air Pertinent Lab Results Pertinent Lab Results: Lab Results 01/06/25 Range/Units 09:45 Urine Test NEGATIVE (NEGATIVE) Airway Mallampati Class: III (Receding chin) TM Dist: >3cm Neck ROM: Full Loose/Missing/Broken Teeth: Yes ([place] teeth extracted. Denies broken or loose teeth) Heart: RRR Lungs: CTAB Assessment and Plan Assessment Anesthesia Assessment: Anesthesia Plan Discussed and Chart Reviewed Final Anesthetic Review Family History of Problems with Anesthesia: No History of Problems with Anesthesia: No NPO: Yes ASA Class: III Final Preanesthetic Review: No Changes in Pt Med Stat, Meds/Allgs Chart Reviewed, Consent Obtained/Reviewed and Anes Risks/Benef Reviewed Patient Risk: Intermediate Procedure Risk: Low Assessment/Block/Sedation in SS: Assess/Block/Sedation-SS Anesthetic Plan Anesthetic Plan: TIVA Disposition: Standard PACU
[2025-01-06 09:56] LABS: UPreg QC Valid YES; Urine Pregnancy NEGATIVE (NEGATIVE)
[2025-01-06 10:03] VITALS: BMI 39.0
[2025-01-06 10:07] VITALS: BP 121/72; PULSE 80; RESP 16; TEMP 36.8; O2SAT 97
[2025-01-06] MEDS: Lactated Ringers 1,000 ML 100 ML IVCONT (10:29)
--- NOTE | 2025-01-06 10:30 | PC.NURSE ---
ColoWrap, Colonoscopy anti-looping comprssion device applied to pt's abd per MD order.
--- NOTE | 2025-01-06 10:39 | MHC.SHP ---
Pre-Procedural Eval Section A - 24 Hr Update-Section A only Date of Service: 01/06/25 Section B - Complete if H&P > 30 days Chief Complaint: Change in bowel habit Relevant Family History (Specify if Yes): No Relevant Social History: None Present Medications: see Short Stay Collaborative assessment Medical History: Significant History (PMDD (premenstrual dysphoric disorder) ADHD Muscle cramps Encounter for physical examination Hypovitaminosis D Skin lesion Morbid obesity Mild asthma) History of Previous Operations: Relevant previous surgery/procedure and date(s) (History of D&C History of endometrial ablation Polydactyly of foot History of tonsillectomy H/O rectal sphincterotomy Lipoma) Allergies: Allergies Allergy/AdvReac Type Severity Reaction Status Date / Time cat dander [CATS] Allergy Intermediate ITCHING Verified 12/24/24 09:04 pollen extracts [POLLEN] Allergy Intermediate ALLERGIC Verified 12/24/24 09:04 RHINITIS ragweed pollen [RAGWEED] Allergy Intermediate ALLERGIC Verified 12/24/24 09:04 RHINITIS tree and shrub pollen Allergy Intermediate allergic Verified 01/04/25 14:36 rhinitis Review of Systems Sugical H&P ROS: Negative: Constitution, Cardiovascular, Respiratory, Neurological, Psychiatric, Hem-Onc, Allergic/Immunologic, Gastrointestinal, Genitourinary, Musculoskeletal, Integumentary, Endocrine and Eyes/Ears/Nose/Throat Exam Surgical H&P Exam: Normal: HEENT, Normal: Heart, Normal: Lungs, Normal: Extremities, Normal: Abdomen, Normal: Skin and Normal: Neurological Plan Diagnosis/Plan: Unchanged I have reviewed the history and physical and performed a pertinent physical examination on my patient. No changes have occurred unless specified. Time Spent With Patient Time: Total time managing care of this patient today ____ minutes.
--- NOTE | 2025-01-06 11:36 | HO.OPN-COLON ---
Colonoscopy Operative Note Operative Note Date of Service: 01/06/25 Narrative: Operative Information Procedure Description: EGD, Colonoscopy Indication: abdominal pain and abnormal bowel habits Anesthesia: MAC FLEXIBLE TRANSORAL UPPER GASTROINTESTINAL ENDOSCOPY AND COLONOSCOPY PROCEDURE NOTE UPPER ENDOSCOPY Consent: Indications for the procedure and potential complications of bleeding, perforation, reaction to medications and missed diagnosis were discussed with the patient and informed consent was obtained. Instrument: Olympus GIF H 190 J mid size upper endoscope Monitoring: Vital signs and clinical assessment, continuous EKG monitoring, Pulse oximetry, Carbon Dioxide monitoring and blood pressure monitoring were done throughout the procedure. Procedure: The patient was placed in the left lateral decubitis position and pre-procedure medications were administered and a bite block was placed. The endoscope was inserted into the mouth and advanced under direct vision to the third part of duodenum. A careful inspection was made as the upper endoscope was withdrawn including a retroflexed examination of the proximal stomach; Findings and interventions are described below. Findings: Larynx:normal Esophagus: GE junction at 38 cm, diaphragm hiatus at 38 cm, boggy mucosa consistent with esophagitis, bx taken from here and distal esophagus Stomach: Normal mucosa. Biopsies were obtained. Grade 2 flap valve on retroflexed examination of the cardia. Duodenum: bulbar duodenitis, bx taken Intervention: Biopsies as noted above, COLONOSCOPY Instrument: Olympus variable stiffness pediatric scope 190L Colonoscopy Monitoring: Vital signs and clinical assessment, continuous EKG monitoring, Pulse oximetry, Carbon Dioxide monitoring and blood pressure monitoring were done throughout the procedure. Colon withdrawal time was 14 minutes. Procedure: The patient was placed in the left lateral decubitis position and pre-procedure medications were administered. After a digital rectal examination of the ano-rectum, the video colonoscope was inserted into the rectum and advanced through the colon to the cecum/TI. The colonoscope was slowly withdrawn in a retrograde panoramic fashion and the colon mucosa was carefully examined including a retroflexed view of the rectum. Findings and interventions are described below. Procedure Difficulty:moderate Findings: Terminal Ileum- patchy erosive ileitis, bx taken random bx taken from right, left and rectum in separate jars Cecum:normal Ascending Colon: normal Transverse Colon -normal Descending Colon:normal Sigmoid Colon: normal Rectum: Retroflexion with small internal hemorrhoids, grade I, 12-14 mm sessile polyp noted, appeared to be inflmmatory polyp, injected with 2 ml of epinpehrine and removed piece meal with hot snare with base cauterized and x 2 clips applied Anorectum - normal Colon preparation: [place] Bowel Preparation Scale Right colon; 2 Transverse colon: 2 Left colon; 2 (0 = Unprepared colon segment with mucosa not seen due to solid stool that cannot be cleared. 1 = Portion of mucosa of the colon segment seen, but other areas of the colon segment not well seen due to staining, residual stool and/or opaque liquid. 2 = Minor amount of residual staining, small fragments of stool and/or opaque liquid, but mucosa of colon segment seen well. 3 = Entire mucosa of colon segment seen well with no residual staining, small fragments of stool or opaque liquid) Impression and Post Procedure Diagnosis: Endoscopy Findings: esophagitis duodenitis Colonoscopy Findings: ileitis colon polyp internal hemorrhoids Plan: Await Pathology results Repeat Colonoscopy in 6-12 months pending path or earlier if clinically indicated High fiber diet leaflet avoid straining at stool, epsom salts and sitz bath, anusol supps or cream check nsaid hx, consider Cte Above findings were reviewed with the patient and relevant handouts were provided if indicated.
[2025-01-06 11:45] VITALS: BP 107/72; PULSE 94; RESP 21; TEMP 36.2; O2SAT 99
[2025-01-06 12:00] VITALS: BP 125/85; PULSE 78; RESP 16; TEMP 36.2; O2SAT 98
== END 2025-01-06 13:02 | disposition home or self-care (01) ==
PROVIDERS: Nurse Practitioner; PCP Internal Medicine; Visit Provider Internal Medicine Gastroenterology
PROC: (CPT 45385; principal; 2025-01-06 11:10)
DX: K51.40 Inflammatory polyps of colon without complications (principal); K62.1 Rectal polyp; K64.0 First degree hemorrhoids; K52.89 Other specified noninfective gastroenteritis and colitis; R19.4 Change in bowel habit; K22.10 Ulcer of esophagus without bleeding; K29.80 Duodenitis without bleeding; R10.9 Unspecified abdominal pain; J45.909 Unspecified asthma, uncomplicated
CPT/HCPCS: 45385; 45380; 45381; 43239; 81025; 88305; 88313; 88342; J0171; J1596; J2003; J2405; J2704

== ENCOUNTER → 2025-01-06 09:24 | Outpatient (BNV) | payer OTHER, SELFPAY | PROVIDERS: PCP Internal Medicine; Visit Provider Internal Medicine Gastroenterology | DX: R10.9 Unspecified abdominal pain (principal); K29.80 Duodenitis without bleeding; K20.90 Esophagitis, unspecified without bleeding; R19.4 Change in bowel habit; K62.1 Rectal polyp; K64.0 First degree hemorrhoids | CPT/HCPCS: 43239; 45380; 45381; 45385 ==

== ENCOUNTER 2025-02-16 07:23 | Outpatient (AMB) | payer OTHER, SELFPAY ==
[2025-02-16 07:32] VITALS: BP 128/80; PULSE 69; RESP 18; TEMP 36.3; O2SAT 99; BMI 39.0
--- NOTE | 2025-02-16 07:32 | MHC.PC.OV ---
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 Required: No Accompanied by: Self / Same As Patient Allergies cat dander [CATS] Allergy (Intermediate, Verified 02/16/25 07:47) ITCHING pollen extracts [POLLEN] Allergy (Intermediate, Verified 02/16/25 07:47) ALLERGIC RHINITIS ragweed pollen [RAGWEED] Allergy (Intermediate, Verified 02/16/25 07:47) ALLERGIC RHINITIS tree and shrub pollen Allergy (Intermediate, Verified 02/16/25 07:47) allergic rhinitis Medication List - Last Reconciled 02/16/25 by Meghan Hurt MD albuterol sulfate 90 mcg/actuation (Ventolin HFA) 2 puffs PO Q6H PRN cetirizine (All Day Allergy (cetirizine)) 10 mg PO DAILY PRN 90 days cholecalciferol (vitamin D3) 25 mcg PO DAILY 90 days dextroamphetamine-amphetamine 30 mg ER 1 cap PO DAILY Tobacco use date assessed: 02/16/25 Dental Screening Dental Screen Date: 02/16/25 Did you have a dental visit in the last 12 months?: No Did you have a dental problem in the last 6 months where you did not have access to dental care?: No Was dental information given to patient?: No HPI HPI Comments History of Present Illness Details The patient is a 44-year-old female presenting for a comprehensive physical examination. She underwent a mammogram last month and a combined colonoscopy and upper endoscopy which identified internal hemorrhoids and polyps. Her medical history includes several surgical procedures such as endometrial ablation and tonsillectomy, among others. She is concerned about allergic reactions to environmental triggers and manages them with cetirizine and an inhaler. Although GERD symptoms are present, she describes an atypical presentation, lacking heartburn, and is pursuing further diagnostic imaging with a CT scan scheduled for the following month. - Pap smear last conducted in 2021; up-to-date - Last tetanus vaccination in 2018, next due in 2027 - Recent mammogram performed and results observed - Colonoscopy performed last month; polyps identified - Upper endoscopy performed with findings of internal hemorrhoids - Mobilizing preventive dermatological care; referral to dermatology for skin evaluation [facility] Medical History (Updated 02/16/25 @ 08:03 by Meghan Hurt MD) PMDD (premenstrual dysphoric disorder) ADHD Muscle cramps Encounter for physical examination Hypovitaminosis D Skin lesion Morbid obesity Mild asthma Surgical History History of D&C History of endometrial ablation Polydactyly of foot History of tonsillectomy H/O rectal sphincterotomy Lipoma Family History (Updated 02/16/25 @ 07:52 by Meghan Hurt MD) Father Atrial fibrillation Essential hypertension Mother No problems noted. 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 1. Little interest or pleasure in doing things: not at all 2. Feeling down, depressed, or hopeless: not at all 3. Trouble falling or staying asleep, or sleeping too much: several days 4. Feeling tired or having little energy: not at all 5. Poor appetite or overeating: not at all 6. Feeling bad about yourself - or that you are a failure or have let yourself or your family down: not at all 7. Trouble concentrating on things, such as reading the newspaper or watching television: not at all 8. Moving or speaking so slowly that other people could have noticed. Or the opposite - being so fidgety or restless that you have been moving around a lot more than usual: not at all 9. Thoughts that you would be better off or of hurting yourself in some way: not at all Total score: 1 Depression Screening Interpretation: Negative Depression Screening Done: Yes 40483 - PHQ-9 Billing: Yes Source: Developed by Drs. Sawyer Carmichael, Marlin Starr, Navin Franks and colleagues, with an educational lubna from [employer]. Thrive Questionnaire Date Thrive assessed: 02/16/25 I am a: Patient What is your living situation today?: I have a steady place to live Within the past 12 months, did the food you bought not last and you didn't have the money to get more?: Never true Within the past 12 months, did you worry whether your food would run out before you got money to buy more?: Never true Do you have trouble paying for medicines?: No Do you have trouble getting transportation to medical appointments?: No Do you have trouble paying your heating and electricity bill?: No Do you have trouble taking care of your child, family member or friend?: No Do you have trouble with day-to-day activities such as bathing, preparing meals, shopping, managing finances, etc.?: No Are you currently unemployed and looking for a job?: No Are you interested in more education?: No Please select the resources that you would like help with: None Currently or been in a relationship where the following occur: No concerns reported THRIVE Score: 0 AUDIT C Alcohol Use Questionnaire (AUDIT-C) 1. How often do you have a drink containing alcohol?: Monthly or less 2. How many drinks containing alcohol do you have on a typical day when you are drinking?: 1 or 2 3. How often do you have six or more drinks on one occasion?: Never Total Score: 1 Score Reviewed/Action Taken: No CARLINE-7 AMB Questionnaire CARLINE-7 Date CARLINE - 7 assessed: 02/16/25 Feeling nervous, anxious, or on edge: 0 = Not at all Not being able to stop or control worryin = Not at all Worrying too much about different things: 0 = Not at all Trouble relaxin = Not at all Being so restless that it is hard to sit still: 1 = Several days Becoming easily annoyed or irritable: 1 = Several days Feeling afraid as if something awful might happen: 0 = Not at all Total CARLINE-7 score (0-4 normal; 5-9 mild; 10-14 moderate; 15-21 severe): 2 Source: Developed by Drs. Sawyer Carmichael, Marlin Starr, Navin Franks and colleagues, with an educational lubna from [employer]. CARLINE-7 Assessment Billing CARLINE-7 Assessment Tool: CARLINE-7 Assessment 45737 Review of Systems Const All systems reviewed & are unremarkable except as noted in HPI and below Card Denies chest pain at rest, Denies chest pain with activity, Denies edema, Denies irregular heart rhythm, Denies claudication, Denies dyspnea, Denies dyspnea on exertion, Denies orthopnea, Denies paroxysmal nocturnal dyspnea and Denies slow heart rate Resp Denies cough, Denies dyspnea and Denies dyspnea on exertion GI Denies abdominal pain, Denies change in bowel habits, Denies excessive flatus, Denies nausea and Denies vomiting Denies urinary incontinence, Denies urinary hesitancy and Denies urinary urgency Skin/Breast Reports lesions Physical exam (Primary Care) Vital Signs: Last Vital Signs Temp 97.3 F 02/16/25 07:32 Pulse 69 02/16/25 07:32 Resp 18 02/16/25 07:32 BP 128/80 02/16/25 07:32 Pulse Ox 99 02/16/25 07:32 Oxygen Delivery Method Room Air 02/16/25 07:32 BMI result Body Mass Index 39.0 BMI Assessment/Plan discussion: High BMI High, discussed plan: lifestyle, weight reduction, dietary and physical activity Tobacco/Smoking Status: Tobacco use Status Tobacco use date assessed 02/16/25 02/16/25 07:34 Patient Tobacco Use Status Never used Tobacco 02/16/25 07:34 Tobacco use type 01/29/22 09:40 e-Cigarette/Vaping Use Never Used 02/16/25 07:34 PHQ-9: PHQ-9 Score PHQ-9: Total score 1 02/16/25 07:41 Depression Screening Interpretation: Negative Thrive Assessment: Date of Thrive Assessment Date Thrive assessed 02/16/25 02/16/25 07:34 Currently or been in a relationship where the following occur: No concerns reported HENMT Head: Yes normal to inspection, Yes normocephalic and Yes atraumatic Ears: external ears normal Eyes General: appearance normal, both eyes and all related structures Eyelids: Yes eyelids normal Conjunctivae: conjunctivae normal Neck Neck: Yes normal visual inspection and Yes supple Resp Effort & Inspection: normal respiratory effort Auscultation: clear to auscultation bilaterally Cardio Jugular venous distension: no JVD Rate: regular rate Rhythm: regular rhythm Heart sounds: S1 normal heart sound present and S2 normal heart sound present GI Inspection: Yes normal to inspection Palpation (GI): Soft to palpation and nontender Auscultation: normal bowel sounds Skin Lesions: lesion noted Neuro General: no focal motor deficits Extrem General: Yes full ROM Psych Appearance: grossly normal Coding Level of Care Code Est Pt Level 3 (17387) Est Pt Prev Care 40-64y(22190) Diagnoses Encounter for physical examination Z00.00 Skin lesion L98.9 Mild persistent asthma without complication J45.30 Asthma persistence: persistent Asthma complication type: uncomplicated Additional Codes CARLINE-7 Assessment Billing - CARLINE-7 Assessment Tool: CARLINE-7 Assessment 37497 ([id number]) PHQ-9 - 63136 - PHQ-9 Billing: Yes ([id number]) Time Spent (min) 33 Assessment & Plan Assessment & Plan (1) Encounter for physical examination: Code(s): Z00.00 - Encounter for general adult medical examination without abnormal findings Category: Medical (2) Skin lesion: Code(s): L98.9 - Disorder of the skin and subcutaneous tissue, unspecified Category: Medical (3) Mild asthma: Code(s): J45.909 - Unspecified asthma, uncomplicated Category: Medical Qualifiers: Asthma persistence: persistent Asthma complication type: uncomplicated Qualified Code(s): J45.30 - Mild persistent asthma, uncomplicated Plan The management plan includes continuing the use of cetirizine and the inhaler for allergic rhinitis, with an emphasis on monitoring GERD symptoms, particularly dysphagia. The upcoming CT scan will provide further insights. A dermatology referral was made to evaluate persistent skin changes potentially indicative of precancerous lesions. The patient's inhaler prescription will be renewed. Routine blood work was advised to assess metabolic parameters. ADHD management with Adderall continues under psychiatry supervision. Patient was informed and verbally consented to the use of an ambient scribe for clinic note documentation during this visit. I explained the necessity to continue current allergy management with cetirizine and an inhaler, recognizing the atypical GERD presentation. We reviewed the potential need for a proton pump inhibitor if symptoms worsen and discussed the associated risk of magnesium deficiency. We talked through the plan for further diagnostic evaluation using the CT scan to assess potential gastrointestinal abnormalities. A dermatology referral was recommended to preclude precancerous skin lesions. I advised renewing her inhaler prescription and the importance of routine blood testing to monitor her metabolic health. Orders: Orders Comprehensive [place]. Panel Fast Today Z00.00 - Encounter for general adult medical examination without abnormal findings Vitamin D 25-OH Total Today E55.9 - Vitamin D deficiency, unspecified Lipid Panel Today Z00.00 - Encounter for general adult medical examination without abnormal findings Referrals Dermatology Referral L98.9 - Disorder of the skin and subcutaneous tissue, unspecified Medications: New albuterol sulfate 90 mcg/actuation (Ventolin HFA) 2 puffs inhalation Q6H 30 days PRN 8.5 grams 2RF shortness of breath or wheezing J45.30 - Mild persistent asthma, uncomplicated Patient Instructions: - Continue using cetirizine and inhaler as needed for allergies - Complete the scheduled CT scan on March 17 - Follow up with dermatology for skin lesions evaluation - Renew prescription for inhaler - Schedule routine blood work to check cholesterol, glucose, kidney, and liver functions - Notify the office for any concerning changes in symptoms related to GERD or skin lesions
== END 2025-02-16 08:01 | disposition home or self-care (01) ==
LOC: HO.HMCH 07:23
PROVIDERS: PCP Internal Medicine; Visit Provider Internal Medicine
DX: Z00.00 Encounter for general adult medical examination without abnormal findings (principal); L98.9 Disorder of the skin and subcutaneous tissue, unspecified; J45.30 Mild persistent asthma, uncomplicated

== ENCOUNTER 2025-02-16 07:23 | Outpatient (REF) | payer OTHER, SELFPAY ==
[2025-02-16 09:05] LABS: Alanine Aminotransferase 16 U/L (0-31); Albumin Level 4.2 g/dL (3.5-5.0); Alkaline Phosphatase 61 U/L (39-117); Anion Gap 8 (12-20); Aspartate Amino Transferase 21 U/L (5-31); Bilirubin Total 0.5 mg/dL (0.0-1.0); Blood Urea Nitrogen 13 mg/dL (9-16); Calcium 9.6 mg/dL (8.4-10.2); Carbon Dioxide 26 mmol/L (22-29); Chloride 109 mmol/L (96-108); Cholesterol 149 mg/dL (<200); Estimated Glomerular Filt Rate > 60; Glucose Fasting 96 mg/dL (60-99); HDL Cholesterol 38 mg/dL (>40); LDL Cholesterol Calculated 89 mg/dL (<100); Sodium 139 mmol/L (135-145); Total Protein 6.7 g/dL (6.5-8.0); Triglycerides 110 mg/dL (<150)
== END 2025-02-16 07:24 | disposition home or self-care (01) ==
LOC: HO.LAB 07:23
PROVIDERS: PCP Internal Medicine; Visit Provider Internal Medicine
DX: Z00.00 Encounter for general adult medical examination without abnormal findings (principal); L98.9 Disorder of the skin and subcutaneous tissue, unspecified; J45.30 Mild persistent asthma, uncomplicated; E55.9 Vitamin D deficiency, unspecified
CPT/HCPCS: 36415; 80053; 80061; 82306; 96127

== ENCOUNTER 2025-03-17 07:49 | Outpatient (REF) | payer OTHER, SELFPAY ==
--- NOTE | ~2025-03-17 | CT_ITS ---
CLINICAL HISTORY: R10.33 - Periumbilical pain --- Additional Notes or Special Instructions: r o crohn s disease, ileitis on colo CT abdomen and pelvis with and without contrast, enterography Comparison: None Findings: No consolidation at the lung bases. Unremarkable gallbladder and bladder. The solid organs are normal. No increased submucosal fat. No hyperenhancement. Question mild wall thickening versus underdistention of the terminal ileum. There is mild engorgement of the vasa recta. No perienteric fat stranding. No fibrofatty proliferation. No evidence of stricture fistula. No bowel wall thickening or dilation. A normal appendix is identified. No aneurysm. No calcified atherosclerotic disease. No lymphadenopathy. No ascites. No acute osseous abnormality. Impression: Wall thickening versus underdistention of the terminal ileum. Mild terminal ileitis could be considered. There is mild engorgement of the vasa recta. No other CT findings of Crohn's disease. This document has been electronically signed by: Priyanka Moreno MD on 03/17/2025 17:17:27
[2025-03-17] MEDS: iohexoL 350 MG/ML 100 ML INFUS..BTL IV (09:57)
[2025-03-17] MEDS: Sorbitol/Mannit/Xanth Imaging 500 ML LIQUID 1500 ML PO (09:58)
== END 2025-03-17 07:50 | disposition home or self-care (01) ==
LOC: HO.CT 07:49
PROVIDERS: PCP Internal Medicine; Visit Provider Internal Medicine Gastroenterology
DX: K52.9 Noninfective gastroenteritis and colitis, unspecified (principal)
CPT/HCPCS: 74177; Q9967

== ENCOUNTER → 2025-03-17 07:50 | Outpatient (BNV) | payer OTHER, SELFPAY | PROVIDERS: PCP Internal Medicine; Visit Provider Radiology Diagnostic Radiology | DX: R10.33 Periumbilical pain (principal) | CPT/HCPCS: 74177 ==

== ENCOUNTER 2025-06-28 11:47 | Outpatient (AMB) | payer OTHER, SELFPAY ==
--- NOTE | 2025-06-28 11:52 | A.OFFVIS_ITS ---
Vital Signs 06/28/25 11:53 Height 5 ft 6 in Weight 238 lb 1.588 oz BMI 38.4 BP 126/77 Blood Pressure Location Lt brachial Position Sitting Pulse 100 Intake Visit Reasons: ct results Intake Note: Yahaira presents in the office as a follow up for her CT scan. CC: Here for results today. States that she is still having all the same issues with her throat. Outpatient Coding Specialist Required: No Allergies cat dander (CATS) Allergy (Intermediate, Verified 02/16/25 07:47) ITCHING pollen extracts (POLLEN) Allergy (Intermediate, Verified 02/16/25 07:47) ALLERGIC RHINITIS ragweed pollen (RAGWEED) Allergy (Intermediate, Verified 02/16/25 07:47) ALLERGIC RHINITIS tree and shrub pollen Allergy (Intermediate, Verified 02/16/25 07:47) allergic rhinitis HPI HPI ct results: Details: 44 yr old f being seen for f/u RECAP Initially seen around 2019 I saw her before for rectal bleeding she had colonoscopy with large inflammatory polyp removed from the rectum, bx neg for colitis Prior visit she had been having sharp pains RUQ and epigastrium not noted pain worse with food particularly does not occur at night she has mild nausea and heartburn occasional no weight loss appetite is good she can have alternating bowel habits has noted blood on the toilet diet is good usually she has had endometriosis and surgery for that, no urine symptoms she has lipomas --a few are tender whitley one in the epigastrium EGD/COlo 01/26: Endoscopy Findings: esophagitis duodenitis Colonoscopy Findings: ileitis colon polyp internal hemorrhoids Plan: Await Pathology results Repeat Colonoscopy in 6-12 months pending path or earlier if clinically indicated High fiber diet leaflet avoid straining at stool, epsom salts and sitz bath, anusol supps or cream check nsaid hx, consider Cte US 07/28- small gb polyp, fatty liver CTe 03/17/25: Wall thickening versus underdistention of the terminal ileum INTERIM: ongoing mild RLQ pain stools are variable consistency no blood, melena has mucous in throat and allergies but no classic reflux sx no nausea or vomiting was taking nsaids in past but stopped for last several months now EXAM: GENERAL: The patient is well developed and nontoxic. VITAL SIGNS:see workflow HEENT: Nonicteric sclerae, PERRLA, EOMI. Oropharynx clear. Moist mucous membranes. Conjunctivae appear well perfused. No thyroid mass. CHEST: Chest wall is nontender. HEART: Regular rate and rhythm without murmurs. LUNGS: Clear to auscultation bilaterally. ABDOMEN: Soft, positive bowel sounds, nontender, no organomegaly.no flank tenderness SKIN: No rash, no excessive bruising, petechiae, or purpura. NEUROLOGIC: Cranial nerves II-XII intact without motor/sensory deficit. Psych: normal affect A/P: 1/ NAFLD- nml LFT 2/ GB polyp- small 3/ ileitis possible crohns 4/ GERD PLAN: 1/ capsule endo 2/ stool lactoferin and CRP, TB spot and hep screening 3/ commence PPI and assess response [facility] Medical History PMDD (premenstrual dysphoric disorder) ADHD Muscle cramps Encounter for physical examination Hypovitaminosis D Skin lesion Morbid obesity Mild asthma Surgical History History of D&C History of endometrial ablation Polydactyly of foot History of tonsillectomy H/O rectal sphincterotomy Lipoma Family History Father Atrial fibrillation Essential hypertension Mother No problems noted. 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 @ [employer] Current occupational exposures/hazards: No Cognitive needs: No Hearing needs: No Vision needs: No Physical Exam Vital Signs: Last Vital Signs Pulse 100 06/28/25 11:53 BP 126/77 06/28/25 11:53 BMI result Body Mass Index 38.4 Assessment & Plan Assessment & Plan (1) Ileitis: Code(s): K52.9 - Noninfective gastroenteritis and colitis, unspecified Category: Medical Plan: as above Orders: Orders C Reactive Protein Today K52.9 - Noninfective gastroenteritis and colitis, unspecified Vitamin B12 and Folate Today K52.9 - Noninfective gastroenteritis and colitis, unspecified T Spot TB Today K52.9 - Noninfective gastroenteritis and colitis, unspecified Lactoferrin, Fecal, Quant. Today K51.50 - Left sided colitis without complications, K52.9 - Noninfective gastroenteritis and colitis, unspecified Complete Blood Count Auto Diff Today K52.9 - Noninfective gastroenteritis and colitis, unspecified Comprehensive Met. Panel Today K52.9 - Noninfective gastroenteritis and colitis, unspecified, K75.81 - Nonalcoholic steatohepatitis (WARD) Hepatitis A,B,C Profile Today Z11.59 - Encounter for screening for other viral diseases Medications: New esomeprazole magnesium 40 mg PO DAILY 30 caps 2RF Coding Level of Care Code Est Pt Level 4 (73993) Diagnoses Ileitis K52.9
[2025-06-28 11:53] VITALS: BP 126/77; PULSE 100; BMI 38.4
--- OUTSIDE RECORDS SUMMARY | 2025-06-28 13:18 | XMS_ITS | Patient Health Record ---
Author Organization [facility] Address [address] [place] [address] Care Team Providers Care Wire Frame Maker Name Role Phone Meghan Hutton Primary Care Provider Oscar Nguyễn Jr Unavailable Allergies Allergen (clinical drug ingredient) Drug/Non Drug Allergy documented on EMR Reaction Allergy Type Onset Date Status rabbits (uncoded) Unknown Allergy Ac tive cats (uncoded) Unknown Allergy Activ e trees (uncoded) Unknown Allergy Acti ve Pollen pollen (uncoded) Unknown Allergy Act felice Reason For Referral No Information Medications Medication SIG (Take, Route, Frequency, Duration) Notes Start Date End Date Status albuterol Active ZyrTEC Active Problems Problem Type SNOMED Code ICD Code Onset Dates Problem Status W/U Status Risk Notes Problem [id number] Elevated liver function tests (R79.89) Active confirmed Plan Of Treatment No Information Insurance Providers Payer Name Payer Address Payer Phone Subscriber Number Group Number Insured Name Patient Relationship to Insured Coverage Start Date Coverage End Date [place] [employer] [address] [place] [phone] [id number] SONNY WARREN Self - patient is the insured Medical (General) History Medical History History ICD Code Denies [place],DM,CVA,renal disease asthma Surgical History Surgery Date(Month/Year) feet 1979' tonsillectomy 1989' excision of lipomas 1999
== END 2025-06-28 12:39 | disposition home or self-care (01) ==
LOC: HO.HGI 11:47
PROVIDERS: PCP Internal Medicine; Visit Provider Internal Medicine Gastroenterology
DX: K52.9 Noninfective gastroenteritis and colitis, unspecified (principal)
CPT/HCPCS: 99214

== ENCOUNTER 2025-07-13 07:51 | Outpatient (AMB) | payer OTHER, SELFPAY ==
--- OUTSIDE RECORDS SUMMARY | 2025-07-13 07:55 | XMS_ITS | Patient Health Record ---
Author Organization [facility] Address [address] [place] [address] Care Team Providers Care Snubber Name Role Phone Meghan Hutton Primary Care Provider Oscar Nguyễn Jr Unavailable [phone] Allergies Allergen (clinical drug ingredient) Drug/Non Drug [...] Problem Status W/U Status Risk Notes Problem [id number] Elevated liver function tests (R79.89) Active confirmed Plan Of Treatment No Information Insurance Providers Payer Name Payer Address Payer Phone Subscriber Number Group Number Insured Name Patient Relationship to Insured Coverage Start Date Coverage End Date [employer] [address] [place] [phone] [id number] SONNY WARREN Self - patient is the insured Medical (General) History Medical History History ICD Code Denies MD,DM,CVA,renal disease asthma Surgical History Surgery Date(Month/Year) feet 1979' tonsillectomy 1989' excision of lipomas 1999
--- NOTE | 2025-07-27 11:00 | A.OFFVIS_ITS ---
Intake Visit Reasons: CAPSULE ENDOSCOPY - SHARYN Allergies cat dander (CATS) Allergy (Intermediate, Verified 02/16/25 07:47) ITCHING pollen extracts (POLLEN) Allergy (Intermediate, Verified 02/16/25 07:47) ALLERGIC RHINITIS ragweed pollen (RAGWEED) Allergy (Intermediate, Verified 02/16/25 07:47) ALLERGIC RHINITIS tree and shrub pollen Allergy (Intermediate, Verified 02/16/25 07:47) allergic rhinitis PFSH Medical History PMDD (premenstrual dysphoric disorder) ADHD Muscle cramps Encounter for physical examination Hypovitaminosis D Skin lesion Morbid obesity Mild asthma Surgical History History of D&C History of endometrial ablation Polydactyly of foot History of tonsillectomy H/O rectal sphincterotomy Lipoma Family History Father Atrial fibrillation Essential hypertension Mother No problems noted. 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 duodenum entered at 2 hr 7 min. Mild bulbar duodenitis. Distal small bowel and ileum with scattered erosions and erythema. Cecum entered at 3 hr 22 min Conclusion: gastritis, duodenitis and enteritis compatible with crohns disease or possible chronic nsaid use Capsule Endoscopy CPT Code: 02935 - Capsule Endoscopy Assessment & Plan Assessment & Plan (1) Ileitis: Code(s): K52.9 - Noninfective gastroenteritis and colitis, unspecified Category: Medical Plan: as above Coding Level of Care Code Procedure Only Diagnoses Ileitis K52.9 CPT Codes AMB Capsule Endoscopy - Capsule Endoscopy CPT Code: 71136 - Capsule Endoscopy ([id number])
== END 2025-07-13 08:12 | disposition home or self-care (01) ==
LOC: HO.HGI 07:52
PROVIDERS: PCP Internal Medicine; Visit Provider Internal Medicine Gastroenterology
DX: K52.9 Noninfective gastroenteritis and colitis, unspecified (principal)
CPT/HCPCS: 91110

== ENCOUNTER → 2025-07-13 07:51 | Outpatient (BNVA) | payer OTHER, SELFPAY | PROVIDERS: PCP Internal Medicine; Visit Provider Internal Medicine Gastroenterology | DX: K52.9 Noninfective gastroenteritis and colitis, unspecified (principal); Z79.82 Long term (current) use of aspirin | CPT/HCPCS: 91110 ==

== ENCOUNTER 2025-10-19 06:58 | Outpatient (REF) | payer OTHER, SELFPAY ==
--- OUTSIDE RECORDS SUMMARY | 2025-10-19 07:01 | XMS_ITS | Patient Health Record ---
Author Organization [facility] Address [address] [place] [address] Care Team Providers Care Muffler Installer Name Role Phone Meghan Hutton Primary Care Provider Oscar Nguyễn Jr Unavailable Allergies Allergen (clinical drug ingredient) Drug/Non Drug Allergy documented on EMR Reaction Allergy Type Onset Date Status cats (uncoded) Unknown Allergy Activ e Pollen pollen (uncoded) Unknown Allergy Act felice rabbits (uncoded) Unknown Allergy Ac tive trees (uncoded) Unknown Allergy Acti ve Reason For Referral No Information Medications Medication SIG (Take, Route, Frequency, Duration) Notes Start Date End Date Status albuterol Active ZyrTEC Active Social History Social History Additional Details Category Social Info Options Details Miscellaneous: Marital status: single 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 Alcohol use is described as 1-2 drinks one to 4 times per week. Alcohol use is described as 1-2 drinks one to 4 times per week. Problems Problem Type SNOMED Code ICD Code Onset Dates Problem Status W/U Status Risk Notes Problem Elevated liver enzymes level (869039454) Elevated liver function tests (R79.89) Active confirmed Plan Of Treatment No Information Insurance Providers Payer Name Payer Address Payer Phone Subscriber Number Group Number Insured Name Patient Relationship to Insured Coverage Start Date Coverage End Date [place] [employer] [address] [place] [phone] [id number] SONNY WARREN Self - patient is the insured Medical (General) History Medical History History ICD Code Denies [place],DM,CVA,renal disease asthma Surgical History Surgery Date(Month/Year) feet tonsillectomy excision of lipomas 1999
[2025-10-19 07:12] LABS: MANUAL DIFF FLAG NO
[2025-10-19 07:52] LABS: Hematocrit 40.5 % (37.0-47.0); Hemoglobin 13.5 g/dl (12.0-16.0); Imm Gran Abs Auto 0.05 X10*3/uL (0.00-0.03); Imm Gran Pct Auto 0.6 % (0.0-0.4); Lymphocytes Absolute Auto 2.4 X10*3/uL (1.2-4.9); Mean Corpuscular HGB Conc 33.3 g/dl (31.0-35.0); Mean Corpuscular Hemoglobin 29.9 pg (27.0-33.0); Mean Corpuscular Volume 89.8 fL (80.0-98.0); NRBC Abs Auto 0.000 X10*3/uL (0.0-0.012); NRBC Pct Auto 0.0 /100WBC (0.0-0.2); Platelet Count 249 X10*3/uL (160-400); Red Blood Count 4.51 X10*6/uL (4.20-5.50); White Blood Count 7.9 X10*3/uL (4.8-10.8)
[2025-10-19 08:11] LABS: Alanine Aminotransferase 22 U/L (0-31); Albumin Level 4.4 g/dL (3.5-5.0); Alkaline Phosphatase 60 U/L (39-117); Anion Gap 9 (12-20); Aspartate Amino Transferase 24 U/L (5-31); Blood Urea Nitrogen 15 mg/dL (9-16); Calcium 9.1 mg/dL (8.4-10.2); Carbon Dioxide 26 mmol/L (22-29); Chloride 107 mmol/L (96-108); Estimated Glomerular Filt Rate > 60; Potassium 3.3 mmol/L (3.3-5.1); Sodium 139 mmol/L (135-145); Total Protein 6.7 g/dL (6.5-8.0)
[2025-10-19 08:30] LABS: HBS Num1 12.71 mIU/mL (0-7.99); HBc Num1 0.11 S/CO (0.00-0.79); HBsAGNum1 0.33 S/CO (0.00-0.99); Hepatitis A Antibody IgM 0.21 Index (0-0.79); Hepatitis B Surface Antigen Negative (Negative); ~HepC Num1 0.09 S/CO (0.00-0.79); ~Hepatitis A Antibody IgM Nonreactive (Nonreactive); ~Hepatitis B Surface Antibody REACTIVE (Nonreactive); ~Hepatitis C Antibody Nonreactive (Nonreactive)
[2025-10-19 08:47] LABS: Folate 9.4 ng/mL (> or = 4.0); Vitamin B12 229 pg/mL (200-900)
== END 2025-10-19 06:59 | disposition home or self-care (01) ==
LOC: HO.LAB 06:58
PROVIDERS: PCP Internal Medicine; Visit Provider Internal Medicine Gastroenterology
DX: Z11.1 Encounter for screening for respiratory tuberculosis (principal); K52.9 Noninfective gastroenteritis and colitis, unspecified; K75.81 Nonalcoholic steatohepatitis (NASH)
CPT/HCPCS: 36415; 80053; 82607; 82746; 85025; 86140; 86481; 86704; 86706; 86709; 86803; 87340

== ENCOUNTER 2025-10-20 08:20 | Outpatient (REF) | payer OTHER, SELFPAY ==
--- OUTSIDE RECORDS SUMMARY | 2025-10-20 08:30 | XMS_ITS | Patient Health Record ---
Author Organization [facility] Address [address] [place] [address] Care Team Providers Care Pattern Puncher Name Role Phone Meghan Hutton Primary Care [...] Risk Notes Problem Elevated liver enzymes level ([id number]) Elevated liver function tests (R79.89) Active confirmed Plan Of Treatment No Information Insurance Providers Payer Name Payer Address Payer Phone Subscriber Number Group Number Insured Name Patient Relationship to Insured Coverage Start Date Coverage End Date [place] [employer] [address] [place] [phone] [id number] SONNY WARREN Self - patient is the insured Medical (General) History Medical History History ICD Code Denies [place],DM,CVA,renal disease asthma Surgical History Surgery Date(Month/Year) feet tonsillectomy excision of lipomas 1999
== END 2025-10-20 08:21 | disposition home or self-care (01) ==
LOC: HO.LNP 08:20
PROVIDERS: Visit Provider Internal Medicine Gastroenterology
DX: K51.50 Left sided colitis without complications (principal)
CPT/HCPCS: 83631

== ENCOUNTER 2025-10-29 13:54 | Outpatient (REF) | payer OTHER, SELFPAY ==
--- OUTSIDE RECORDS SUMMARY | 2025-10-29 13:58 | XMS_ITS | Patient Health Record ---
Author Organization [facility] Address [address] [place] [address] Care Team Providers Care Industrial Machine Operator Name Role Phone Meghan Hutton Primary Care [...] Risk Notes Problem Elevated liver enzymes level ([id number]) Elevated liver function tests (R79.89) Active confirmed Plan Of Treatment No Information Insurance Providers Payer Name Payer Address Payer Phone Subscriber Number Group Number Insured Name Patient Relationship to Insured Coverage Start Date Coverage End Date [employer] [address] [place] [phone] [id number] SONNY WARREN Self - patient is the insured Medical (General) History Medical History History ICD Code Denies [place],DM,CVA,renal disease asthma Surgical History Surgery Date(Month/Year) feet tonsillectomy excision of lipomas 1999
[2025-10-31 19:05] LABS: TS Negative Control Passed; TS Panel A 0; TS Panel B 0; TS Positive Control Passed; TSpotTB Negative (Negative)
== END 2025-10-29 13:55 | disposition home or self-care (01) ==
LOC: HO.LAB 13:54
PROVIDERS: PCP Internal Medicine; Visit Provider Internal Medicine Gastroenterology
DX: R10.84 Generalized abdominal pain (principal); K52.9 Noninfective gastroenteritis and colitis, unspecified
CPT/HCPCS: 36415; 86481